=== PATIENT | female | born 1940 | race Caucasian/White ===

== ENCOUNTER 2023-12-27 13:37 | Outpatient (REF) | payer MEDICARE, OTHER, SELFPAY | END 2023-12-27 13:38 | disposition home or self-care (01) | LOC: HO.CT 13:37 | PROVIDERS: PCP Nurse Practitioner Adult Health; Visit Provider Internal Medicine Nephrology | DX: I12.9 Hypertensive chronic kidney disease with stage 1 through stage 4 chronic kidney disease, or unspecified chronic kidney disease (principal); E11.22 Type 2 diabetes mellitus with diabetic chronic kidney disease; N18.30 Chronic kidney disease, stage 3 unspecified; E11.21 Type 2 diabetes mellitus with diabetic nephropathy; N25.0 Renal osteodystrophy | CPT/HCPCS: 74176 ==

== ENCOUNTER → 2023-12-27 13:40 | Outpatient (BNV) | payer MEDICARE, MEDICAID, SELFPAY | PROVIDERS: PCP Nurse Practitioner Adult Health; Visit Provider Radiology Diagnostic Radiology | DX: N28.9 Disorder of kidney and ureter, unspecified (principal) | CPT/HCPCS: 74176 ==